=== PATIENT | male | born 1955 | race Caucasian/White ===

== ENCOUNTER → 2018-11-21 | Outpatient (CLI) | payer OTHER ==
[2018-11-21 17:57] LABS: URINE PROTEIN:CREAT RATIO 0.1 (0.00-0.14)
[2018-11-21 18:00] LABS: ALBUMIN 4.1 gm/dL (3.5-5.0); BILIRUBIN,TOTAL 0.5 mg/dL (0.0-1.0); CALCIUM 9.1 mg/dL (8.4-10.2); CHOLESTEROL RISK RATIO 8.3; CREATININE, serum 0.85 (0.66-1.25); POTASSIUM 4.2 mmol/L (3.4-5.0); TOTAL PROTEIN 7.2 gm/dL (6.4-8.2)
[2018-11-21 18:24] LABS: THYROID STIMULATING HORMONE 4.4 uIU/mL (0.465-4.680)
== END ==
LOC: ZCOL.LAB 16:31
PROVIDERS: Family Medicine
DX: E11.9 Type 2 diabetes mellitus without complications (principal); E03.9 Hypothyroidism, unspecified; E78.5 Hyperlipidemia, unspecified

== ENCOUNTER → 2019-01-06 | Outpatient (CLI) | payer OTHER ==
[2019-01-06 18:24] LABS: ALANINE AMINOTRANSFERASE 29 U/L (21-72); AST,SGOT 18 U/L (15-37); CREATINE KINASE 54 U/L (55-170)
== END ==
LOC: ZCOL.LAB 16:03
PROVIDERS: Family Medicine
DX: E11.69 Type 2 diabetes mellitus with other specified complication (principal)

== ENCOUNTER 2019-08-15 07:52 | Observation (INO) | payer MEDICARE ==
[~2019-08-15] VITALS: Ht 190.5 cm; Wt 122.7 kg
[2019-08-15] MEDS ORDERED: GLUCOPHAGE1000 MG PO (08:55)
[2019-08-15] MEDS ORDERED: PRINIVIL20 MG PO (08:56)
[2019-08-15] MEDS ORDERED: LIPITOR 40MG TA40 MG PO (08:57)
[2019-08-15 09:17] VITALS: BP 136/70; PULSE 88; TEMP 97.6
[2019-08-15 17:15] VITALS: BP 135/65; PULSE 88; TEMP 98.1
[2019-08-15 17:30] VITALS: BP 160/70; PULSE 90
[2019-08-15 17:40] VITALS: TEMP 98.5
[2019-08-15 17:45] VITALS: BP 155/68; PULSE 80
[2019-08-15 18:00] VITALS: BP 170/65; PULSE 75
--- NOTE | 2019-08-15 18:54 | NUR ---
PATIENT POST OP TO THE FLOOR @ 1715. ARRIVED TO FLOOR VIA BED. A/O X 4. AWAKE AND TALKING. DENIES C/O PAIN OR DISCOMFORT. REQUESTING TO GET UP TO BATHROOM. LARGE AMOUNT OF BLOOD TINGED URINE. NO INCREASED PAIN WITH URINATING. SPRITE AND ICE PROVIDED PER REQUEST. SEE FLOWSHEET FOR FVS OBTAINED. DENIES FURTHER NEEDS OR COMPLAINTS.
--- NOTE | 2019-08-15 18:57 | NUR ---
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 PRINTED DC INSTRUCTIONS TO INCLUDE FOLOW UP REVIEWED WITH PATIENT. SEE EMAR FOR HYDROCODONE ADMINISTERED FOR MILD DISCOMFORT. PATIENT HAS NO QUESTIONS OR CONCERNS AT DISCHARGE.
== END 2019-08-15 18:50 | disposition home or self-care (01) ==
LOC: JCC 07:52
PROVIDERS: ADMIT Urology
DX: N20.2 Calculus of kidney with calculus of ureter (principal); I10 Essential (primary) hypertension; E78.00 Pure hypercholesterolemia, unspecified; E11.40 Type 2 diabetes mellitus with diabetic neuropathy, unspecified; F17.210 Nicotine dependence, cigarettes, uncomplicated; Z79.84 Long term (current) use of oral hypoglycemic drugs; Z79.899 Other long term (current) drug therapy
CPT/HCPCS: C1769; C2617; G0378; J0690; J1885; J2405; J2704; J2765; J3010; J7030; Q9967

== ENCOUNTER 2019-08-27 12:15 | Day surgery (SDC) | payer MEDICARE ==
[~2019-08-27] VITALS: Ht 190.5 cm; Wt 121.7 kg
[~2019-08-27 12:15] MED LIST: GLUCOPHAGE1000 MG PO; LIPITOR 40MG TA40 MG PO; PRINIVIL20 MG PO
[2019-08-27 13:10] VITALS: BP 152/75; PULSE 85; TEMP 97.9
[2019-08-27] MEDS ORDERED: OZEMPIC1 MG/0.75 SQ (13:22)
[2019-08-27 16:05] VITALS: BP 157/77; PULSE 69
--- NOTE | 2019-08-27 16:05 | NUR ---
Patient returns to room 4 per cart from PACU and is awake and alert. Temp 97.7 and room air sats 97%. Denies pain or nausea. Taking diet Sprite. IV fluids infusing and site is free of redness. Siderails up x2. Allowed to rest.
[2019-08-27 16:20] VITALS: BP 167/71; PULSE 67
--- NOTE | 2019-08-27 16:20 | NUR ---
Room air sats 100%. Sipping on diet Sprite.
[2019-08-27] MEDS ORDERED: NORCO 325 MG-51 TAB PO (16:22)
[2019-08-27 16:28] VITALS: TEMP 97.5
[2019-08-27 16:35] VITALS: BP 163/73; PULSE 61
--- NOTE | 2019-08-27 16:35 | NUR ---
Eating muffin and sipping on diet Sprite. Room air sats 100%.
[2019-08-27 16:50] VITALS: BP 183/76; PULSE 78
--- NOTE | 2019-08-27 16:50 | NUR ---
Asisted up to the bathroom and is able to void and returns to room. Gait steady. Voids and returns to room. Denies pain or nausea.
--- NOTE | 2019-08-27 16:55 | NUR ---
IV discontinued and given dismissal instructions and voices understanding of these. Provided script for [place] for pain if needed. Instructed that the office will call with follow up appointment date and time.
--- NOTE | 2019-08-27 17:15 | NUR ---
Ride here and patient dismissed to home per private vehicle driven by spouse and taken to the emergency room entrance by wheelchair and assisted into car by Jennifer LUEVANO
== END 2019-08-27 17:15 | disposition home or self-care (01) ==
LOC: SDCO 12:15
DX: N20.1 Calculus of ureter (principal); I10 Essential (primary) hypertension; E78.00 Pure hypercholesterolemia, unspecified; F17.210 Nicotine dependence, cigarettes, uncomplicated; Z79.899 Other long term (current) drug therapy
CPT/HCPCS: C1769; C2617; J0690; J2405; J2704; J3010; J7030